=== PATIENT | male | born 1945 | race Caucasian/White ===

== ENCOUNTER 2017-07-15 06:23 | Day surgery (SDC) | payer MEDICARE ==
[2017-07-14 14:01] VITALS: BMI 24.7
[2017-07-15] MEDS ORDERED: CEFAZOLIN/Water 2 GM/20 ML SYRINGE ONE (06:33)
[2017-07-15 06:46] LABS: #Basophils 0.1 thou/uL (0.0-0.2); #Eosinphils 0.3 thou/uL (0.0-0.7); #Lymphocytes 2.5 thou/uL (1.20-3.40); #Monocytes 0.7 thou/uL (0.11-0.59); #Neutrophils 3.2 thou/uL (1.40-6.50); %Basophils 1.1 % (0.0-1.0); %Lymphocytes 36.9 % (21.0-51.0); %Monocytes 9.8 % (0.0-10.0); %Neutrophils 47.2 % (42.0-75.0); Mean Corpuscular Hemoglobin 34.2 pg (27.0-31.0); Mean Corpuscular Volume 97.7 fl (80.0-94.0); Mean Platelet Volume 8.7 fL (7.4-10.4); Platelet Count 155 thou/uL (130-400); RBC Distribution Width 11.9 % (11.5-14.5); Red Blood Cell (RBC) Count 4.09 mill/uL (4.70-6.10); White Blood Cell (WBC) Count 6.7 thou/uL (4.8-10.8)
[2017-07-15 06:52] LABS: PTT 25.9 SEC (22.9-36.1); Prothrombin Time 13.4 SEC (12.0-14.7)
[2017-07-15] MEDS ORDERED: Fentanyl 250 MCG/5 ML VIAL ONE (06:55)
[2017-07-15 07:05] LABS: Anion Gap 12 mmol/L (10-20); BUN (Urea Nitrogen) 14 mg/dL (8.4-25.7); Calc. Creatinine Clearance 63 mL/min (70-130); Calcium 9.9 mg/dL (7.8-10.44); Carbon Dioxide 25 mmol/L (23-31); Chloride 104 mmol/L (98-107); Estimated GFR-MDRD 76; Glucose 126 mg/dL (80-115); Potassium 4.6 mmol/L (3.5-5.1); Sodium 136 mmol/L (136-145)
[2017-07-15] MEDS ORDERED: Iothalamate Meglumine 60% 50 ML VIAL FS ONE (07:14)
--- NOTE | 2017-07-15 09:07 | OP ---
DATE OF PROCEDURE: 07/15/2017 PREOPERATIVE DIAGNOSIS: Bladder lesion, history of transitional cell carcinoma. POSTOPERATIVE DIAGNOSIS: Bladder lesion, history of transitional cell carcinoma. PROCEDURE PERFORMED: Cystoscopy, bilateral retrogrades, transurethral resection bladder tumor. SURGEON: Dr. Hector Morelos ANESTHETIC: General. ESTIMATED BLOOD LOSS: Minimal. FINDINGS: He had a 1 cm patch of papillary mucosa that was abnormal just medial to the left ureteral orifice and 1 just lateral to it. These were resected. Retrograde studies of both sides were joy l. After resection, the ureteral orifice was not resected and after resection it was effluxing clear urine. OPERATIVE TECHNIQUE: After obtaining written and verbal consent from the patient, he was taken to [facility] operating suite. He was placed in supine position on the treatment table. PlexiPulses placed on h is lower extremities and turned on. He was given a general anesthetic, oral intubation. He was plac ed in the dorsal lithotomy position, sterilely prepped and draped. A private branch exchange installer KUB was taken with fluoro scopy unit. Cystoscopy was performed. A 22-Swedish sheath was well lubricated and advanced under dir ect vision through the male urethra into the urinary bladder with aid of a 30-degree lens, a video ca ryanne and monitor. The bladder was filled and emptied a number of times and examined with both 30 and 70-degree lens. A 5 Swedish Pollack catheter was flushed with contrast and brought in. It was plac ed in the right ureteral orifice and contrast was injected slowly in a retrograde manner probably abo ut 10-20 mL filling out the distal, mid and proximal ureter as well as the entire collecting system. The left side was done in a similar manner and then drainage films were taken. The instruments were removed. We attempted then to pass with a visual obturator the 26-Swedish resectoscope sheath, but t here was a little bit tight to the distal urethra, so he was dilated up to 28 Swedish with Carol s ounds and the scope was then passed without difficulty into the bladder. We used a 30 degree lens an d video camera monitor, resected the tumor on the medial aspect and on the lateral aspect. These spe cimens were removed and cauterized the tumor sites and looked to be sure the ureter was still effluxi ng and it was. At this point, the instruments were removed and an 18-Swedish coude catheter was steri zuleima lubricated and passed without difficulty into the bladder, it was draining clear urine/irrigatio n fluid. He was taken out of dorsal lithotomy position, awakened, extubated, and taken by stretcher to the recovery room.
--- NOTE | 2017-07-15 10:18 | RAD ---
BILATERAL RETROGRADE PYELOGRAM: HISTORY: Bladder tumor. FINDINGS: There is opacification of the pelvicalyceal systems and ureters on either side without hydroureterone phrosis. Minimal persistent narrowing of the right distal ureter is again noted. IMPRESSION: Stable exam. POS: NATY
[2017-07-15] MEDS ORDERED: traMADol HCl 50 MG TAB ONE (10:52)
[2017-07-15] MEDS ORDERED: Glycopyrrolate 0.2 MG/ML 5 ML SYRINGE ONE (14:05)
[2017-07-15] MEDS ORDERED: PROPOFOL 200 MG/20 ML VIAL ONE (14:05)
[2017-07-15] MEDS ORDERED: Lidocaine 1% PF 5 ML VIAL ONE (14:05)
[2017-07-15] MEDS ORDERED: ePHEDrine/0.9% NaCl/PF SYRINGE 50 mg/10 ml ONE (14:05)
[2017-07-15] MEDS ORDERED: Ondansetron HCl/PF 4 MG/2 ML Vial ONE (14:05)
--- NOTE | 2017-07-19 18:08 | EKG ---
Test Reason : PREOP Blood Pressure : / mmHG Vent. Rate : 060 BPM Atrial Rate : 060 BPM P-R Int : 200 ms QRS Dur : 098 ms QT Int : 412 ms P-R-T Axes : 016 -03 037 degrees QTc Int : 412 ms Sinus rhythm with marked sinus arrhythmia Otherwise normal ECG When compared with ECG of 29-SEP-2015 08:34, No significant change was found Confirmed by Mely STAFFORD ([id number]) on 07/19/2017 6:08:10 PM Referred By: JAZMINE Confirmed By:Mely STAFFORD
== END 2017-07-15 11:05 | disposition home or self-care (01) ==
LOC: SDC 06:23
PROVIDERS: ATTEND Urology
PROC: 0TBB8ZX Excision of Bladder, Via Natural or Artificial Opening Endoscopic, Diagnostic (ICD-10-PCS; principal; 2017-07-15)
DX: N30.80 Other cystitis without hematuria (principal); I10 Essential (primary) hypertension; E11.9 Type 2 diabetes mellitus without complications; G89.29 Other chronic pain; M54.9 Dorsalgia, unspecified; Z85.51 Personal history of malignant neoplasm of bladder; Z79.84 Long term (current) use of oral hypoglycemic drugs; Z79.899 Other long term (current) drug therapy; Z88.5 Allergy status to narcotic agent
CPT/HCPCS: 52234; 74420; 80048; 85025; 85610; 85730; 88307; 93005; C1758; 36415; 93010; J2001; J2405; J2704; J3010; Q9961

== ENCOUNTER 2024-02-21 11:01 | Outpatient (CLI) | payer MEDICARE | END 2024-02-21 11:02 | disposition home or self-care (01) | LOC: SCSRAD 11:01 | PROVIDERS: ATTEND Nurse Practitioner Family | DX: M47.22 Other spondylosis with radiculopathy, cervical region (principal); I65.29 Occlusion and stenosis of unspecified carotid artery | CPT/HCPCS: 72040 ==

== ENCOUNTER 2024-03-08 09:22 | Inpatient (IN) | payer MEDICARE ==
[2024-03-08 10:10] LABS: #Basophils 0.03 10x3/uL (0.0-0.2); %Basophils 0.5 % (0.0-1.0); %Eosinophils 2.1 % (0.0-10.0); %Lymphocytes 18.6 % (21.0-51.0); %Monocytes 10.1 % (0.0-10.0); %Neutrophils 68.5 % (42.0-75.0); Hematocrit 28.6 % (42.0-52.0); Hemoglobin 9.3 g/dL (14.0-18.0); Mean Corpuscular HGB CONC 32.5 g/dL (32.0-36.0); Mean Corpuscular Hemoglobin 31.3 pg (27.0-31.0); Mean Corpuscular Volume 96.3 fL (78.0-98.0); Mean Platelet Volume 11.6 fL (7.4-10.4); Platelet Count 125 10x3/uL (130-400); RBC Distribution Width 13.2 % (11.5-14.5); Red Blood Cell (RBC) Count 2.97 mill/uL (4.70-6.10)
[2024-03-08] MEDS ORDERED: Furosemide 40 MG (4 mL) VIAL ONE (10:36)
[2024-03-08] MEDS ORDERED: hydrALAZINE 20 MG/ML VIAL ONE (10:36)
[2024-03-08 10:49] LABS: ALT (SGPT) 16 U/L (Less than 45); AST (SGOT) 28 U/L (11-34); Alkaline Phosphatase 114 U/L (40-110); Anion Gap 14 mmol/L (10-20); BUN (Urea Nitrogen) 15 mg/dL (8.4-25.7); Calc. Creatinine Clearance 0 mL/min (70-130); Calcium 9.2 mg/dL (7.8-10.44); Carbon Dioxide 24 mmol/L (23-31); Chloride 106 mmol/L (98-107); Estimated GFR 74; Globulin 3.5 g/dL (2.4-3.5); Glucose 113 mg/dL (83-110); Potassium 4.3 mmol/L (3.5-5.1); Protein, Total 7.5 g/dL (5.8-8.1); Sodium 140 mmol/L (136-145)
[2024-03-08 10:51] LABS: Troponin I Less than 0.010 ng/mL (< 0.028)
[2024-03-08] MEDS ORDERED: Lorazepam 1 MG TAB PO PRN (14:33)
[2024-03-08] MEDS ORDERED: Dextrose 5% in Water 1,000 ML IV PRN (14:33)
[2024-03-08] MEDS ORDERED: Glucagon 1 MG/ML KIT IM PRN (14:33)
[2024-03-08] MEDS ORDERED: Dextrose 50% Abboject 50 ML SYRINGE SLOW IVP PRN (14:33)
[2024-03-08] MEDS ORDERED: Insulin Lispro 100 UNIT/ML 10 ML VIAL SC PRN ×2 (14:33)
[2024-03-08] MEDS ORDERED: Ondansetron PF 4 MG/2 ML Vial IVP PRN (14:33)
[2024-03-08] MEDS ORDERED: Ondansetron ODT 4 MG TAB PO PRN (14:33)
[2024-03-08] MEDS ORDERED: Electrolyte Replacement Protocol 1 EACH FS SCH (14:45)
[2024-03-08 15:15] VITALS: BMI 33.3
[2024-03-08] MEDS ORDERED: Electrolyte Replacement Protocol FS PRN (15:30)
[2024-03-08 15:40] LABS: RBC Count-Automated (BF) 1403 /cu.mm; WBC/Nucleated-Auto (BF) 407 /cu.mm
[2024-03-08 15:41] LABS: BF Color Yellow; Body Fluid Source Ascites Body Fluid; Clarity Hazy (Clear); Tube # EDTA
[2024-03-08 16:01] LABS: BF Segmented Neutrophils 3 %; Cell Count Non Hematic 50 %; Lymphocytes 47 %
[2024-03-08] MEDS: Thiamine HCl 200 MG/2 ML VIAL SLOW IVP SCH (16:25)
[2024-03-08] MEDS: Pantoprazole 40 MG DR.TAB PO SCH (16:25)
[2024-03-08 16:41] LABS: Phosphorus 3.7 mg/dL (2.5-4.5)
[2024-03-08 16:43] LABS: Iron 27 ug/dL (65-175); Iron Binding Capacity, Total 464 mcg/dL (261-462); Magnesium 1.8 mg/dL (1.6-2.6)
[2024-03-08 17:01] LABS: HBsAg Index 0.31 S/CO (0-0.99); Hep A IgM AB NONREACTIVE (NonReactive); Hep B Core IgM Index 0.15 S/CO (0-0.79); Hep B Surf Ag NONREACTIVE S/CO (NonReactive); Hep C IgG Ab NONREACTIVE S/CO (NonReactive); Hep C Index 0.09 S/CO (0-0.79); Hepatitis B Core IgM Abs NONREACTIVE S/CO (NonReactive)
[2024-03-08 17:28] LABS: Ferritin 22.67 ng/mL (22-322)
[2024-03-08] MEDS: Magnesium 2 GM/50 ML(in water) 2 GM in Premix 1 BAG IVPB SCH (17:47)
[2024-03-08] MEDS: Melatonin 3 MG TAB PO PRN (22:08)
[2024-03-09 06:32] LABS: #Basophils 0.04 10x3/uL (0.0-0.2); %Basophils 0.8 % (0.0-1.0); %Eosinophils 2.9 % (0.0-10.0); %Lymphocytes 19.6 % (21.0-51.0); %Monocytes 12.3 % (0.0-10.0); %Neutrophils 64.2 % (42.0-75.0); Hematocrit 26.8 % (42.0-52.0); Hemoglobin 8.9 g/dL (14.0-18.0); Mean Corpuscular HGB CONC 33.2 g/dL (32.0-36.0); Mean Corpuscular Hemoglobin 31.2 pg (27.0-31.0); Mean Platelet Volume 11.8 fL (7.4-10.4); Platelet Count 122 10x3/uL (130-400); RBC Distribution Width 13.2 % (11.5-14.5); Red Blood Cell (RBC) Count 2.85 mill/uL (4.70-6.10)
[2024-03-09 08:35] LABS: ALT (SGPT) 13 U/L (Less than 45); AST (SGOT) 23 U/L (11-34); Albumin 3.4 g/dL (3.1-4.5); Anion Gap 12 mmol/L (10-20); BUN (Urea Nitrogen) 14 mg/dL (8.4-25.7); Bilirubin, Total 1.1 mg/dL (0.3-1.2); Calc. Creatinine Clearance 88 mL/min (70-130); Carbon Dioxide 26 mmol/L (23-31); Chloride 107 mmol/L (98-107); Estimated GFR 75; Globulin 2.9 g/dL (2.4-3.5); Glucose 115 mg/dL (83-110); Magnesium 2.1 mg/dL (1.6-2.6); Potassium 3.6 mmol/L (3.5-5.1); Protein, Total 6.3 g/dL (5.8-8.1); Sodium 141 mmol/L (136-145)
[2024-03-09 08:57] LABS: Alkaline Phosphatase 99 U/L (40-110)
[2024-03-09] MEDS: Furosemide 40 MG (4 mL) VIAL SLOW IVP SCH (09:34)
[2024-03-09] MEDS: Folic Acid 1 MG TAB PO SCH (09:34)
[2024-03-09] MEDS: Pantoprazole 40 MG DR.TAB PO SCH (09:34)
[2024-03-09] MEDS: Multivit, Therapeutic 1 TAB PO SCH (09:34)
[2024-03-09 10:50] LABS: INR-International Normal Ratio 1.1; Prothrombin Time 14.6 sec (12.0-14.7)
[2024-03-09 10:51] LABS: PTT 30.4 sec (22.9-36.1)
[2024-03-09] MEDS: Lisinopril 20 MG TAB PO SCH (10:51)
[2024-03-09] MEDS: Metoprolol Succinate XL 50 MG ER.TAB PO SCH (10:52)
[2024-03-09] MEDS: Pregabalin 75 MG CAP PO SCH ×2 (10:52→15:18)
[2024-03-09 12:58] LABS: EliA Vaculitis New Method **** NEW METHOD ****; Mitochondrial Ab 1.7 U/mL (<4 Negative)
[2024-03-09] MEDS ORDERED: Lorazepam 1 MG TAB PO PRN (14:33)
[2024-03-10] MEDS: Atorvastatin Calcium 20 MG TAB PO SCH (00:32)
[2024-03-10] MEDS: cefTRIAXone\\ROCEPHIN 1 GM in Sodium Chloride 0.9% 100 ML IVPB SCH (00:32)
[2024-03-10] MEDS: Vancomycin (BATCH) 2.5 GM in Premix 1 BAG IVPB SCH (01:55)
[2024-03-10 05:44] LABS: #Basophils 0.05 10x3/uL (0.0-0.2); %Lymphocytes 19.6 % (21.0-51.0); %Monocytes 11.9 % (0.0-10.0); %Neutrophils 63.3 % (42.0-75.0); Hematocrit 28.2 % (42.0-52.0); Hemoglobin 9.8 g/dL (14.0-18.0); Mean Corpuscular HGB CONC 34.8 g/dL (32.0-36.0); Mean Corpuscular Hemoglobin 33.1 pg (27.0-31.0); Mean Corpuscular Volume 95.3 fL (78.0-98.0); Mean Platelet Volume 11.7 fL (7.4-10.4); Platelet Count 146 10x3/uL (130-400); RBC Distribution Width 13.3 % (11.5-14.5); Red Blood Cell (RBC) Count 2.96 mill/uL (4.70-6.10)
[2024-03-10 06:04] LABS: Vancomycin, Random 34.2 ug/mL (See Comment)
[2024-03-10 06:16] LABS: ALT (SGPT) 18 U/L (Less than 45); AST (SGOT) 37 U/L (11-34); Albumin 3.4 g/dL (3.1-4.5); Alkaline Phosphatase 101 U/L (40-110); Anion Gap 11 mmol/L (10-20); BUN (Urea Nitrogen) 10 mg/dL (8.4-25.7); Bilirubin, Total 0.9 mg/dL (0.3-1.2); Calc. Creatinine Clearance 76 mL/min (70-130); Calcium 8.6 mg/dL (7.8-10.44); Carbon Dioxide 28 mmol/L (23-31); Chloride 105 mmol/L (98-107); Estimated GFR 67; Globulin 3.2 g/dL (2.4-3.5); Glucose 121 mg/dL (83-110); Magnesium 1.7 mg/dL (1.6-2.6); Potassium 3.2 mmol/L (3.5-5.1); Protein, Total 6.6 g/dL (5.8-8.1); Sodium 141 mmol/L (136-145)
[2024-03-10] MEDS ORDERED: Vancomycin 1 GM in Premix 1 BAG IVPB SCH (09:00)
[2024-03-10] MEDS: Metoprolol Succinate XL 50 MG ER.TAB PO SCH (09:12)
[2024-03-10] MEDS: Folic Acid 1 MG TAB PO SCH (09:12)
[2024-03-10] MEDS: Lisinopril 20 MG TAB PO SCH (09:13)
[2024-03-10] MEDS: Thiamine 100 MG TAB PO SCH (09:13)
[2024-03-10] MEDS: Potassium Chloride 20 MEQ TAB PO SCH ×2 (09:14→16:13)
[2024-03-10] MEDS: Magnesium 2 GM/50 ML(in water) 2 GM in Premix 1 BAG IVPB SCH (09:32)
[2024-03-10] MEDS ORDERED: Regadenoson 0.4 MG/5 ML SYRINGE ONE (11:18)
[2024-03-10] MEDS: Vancomycin HCl 750 MG in Sodium Chloride 0.9% 250 ML 250 ML IVPB SCH (13:14)
[2024-03-10 14:10] LABS: Potassium 3.4 mmol/L (3.5-5.1)
[2024-03-10] MEDS ORDERED: Lorazepam 1 MG TAB PO PRN (14:33)
[2024-03-11] MEDS ORDERED: Thiamine 100 MG TAB PO SCH (09:00)
[2024-03-11] MEDS: Spironolactone 100 MG TAB PO SCH (10:10)
[2024-03-11] MEDS: Furosemide 20 MG TAB PO SCH (10:11)
[2024-03-11] MEDS: Magnesium 2 GM/50 ML(in water) 2 GM in Premix 1 BAG IVPB SCH (12:23)
[2024-03-11] MEDS ORDERED: Lorazepam 0.5 MG TAB PO PRN (14:33)
[2024-03-11] MEDS: GoLYTELY 4,000 ml Bottle PO SCH (16:24)
[2024-03-11] MEDS: Sodium Chloride 0.9% 100 ML ONE (20:43)
[2024-03-12 09:20] VITALS: BP 157/77; TEMP 97.9
[2024-03-12] MEDS ORDERED: PROPOFOL 20 ML ONE ×2 (10:22→11:05)
[2024-03-12] MEDS ORDERED: PROPOFOL 200 MG/20 ML VIAL ONE (10:37)
[2024-03-12] MEDS ORDERED: Promethazine HCl 25 MG/ML VIAL IM PRN (11:13)
[2024-03-12] MEDS ORDERED: Ondansetron HCl/PF 4 MG/2 ML Vial IVP PRN (11:13)
[2024-03-12 14:17] LABS: #Basophils 0.06 10x3/uL (0.0-0.2); %Eosinophils 5.2 % (0.0-10.0); %Lymphocytes 24.7 % (21.0-51.0); %Monocytes 9.7 % (0.0-10.0); %Neutrophils 59.2 % (42.0-75.0); Hematocrit 36.6 % (42.0-52.0); Mean Corpuscular HGB CONC 32.8 g/dL (32.0-36.0); Mean Corpuscular Hemoglobin 30.5 pg (27.0-31.0); Mean Corpuscular Volume 92.9 fL (78.0-98.0); Mean Platelet Volume 11.7 fL (7.4-10.4); Platelet Count 177 10x3/uL (130-400); RBC Distribution Width 13.1 % (11.5-14.5); Red Blood Cell (RBC) Count 3.94 mill/uL (4.70-6.10)
[2024-03-12 14:34] LABS: Calc. Creatinine Clearance 82 mL/min (70-130); Estimated GFR 75
[2024-03-12 14:35] LABS: ALT (SGPT) 49 U/L (Less than 45); AST (SGOT) 77 U/L (11-34); Albumin 4.1 g/dL (3.1-4.5); Alkaline Phosphatase 136 U/L (40-110); Anion Gap 15 mmol/L (10-20); BUN (Urea Nitrogen) 10 mg/dL (8.4-25.7); Bilirubin, Total 0.8 mg/dL (0.3-1.2); Calc. Creatinine Clearance 79 mL/min (70-130); Calcium 9.4 mg/dL (7.8-10.44); Carbon Dioxide 22 mmol/L (23-31); Chloride 105 mmol/L (98-107); Estimated GFR 73; Glucose 133 mg/dL (83-110); Potassium 3.8 mmol/L (3.5-5.1); Protein, Total 8.1 g/dL (5.8-8.1); Sodium 138 mmol/L (136-145)
[2024-03-13 11:08] LABS: ANA Symphony (Qualitative) Negative (Negative); ANA Symphony (Quantitative) 0.2 Ratio (< 0.7 Negative); dsDNA IgG Antibody 1.3 IU/mL (<10 Negative)
== END 2024-03-12 15:21 | disposition home or self-care (01) | DRG 432 ==
LOC: ERS 09:22 → T4-B 15:09 → OBSVTOIN 03-09 13:19
PROVIDERS: ADMIT Student in an Organized Health Care Education/Training Program; ATTEND Internal Medicine
PROC: 0DBP8ZX Excision of Rectum, Via Natural or Artificial Opening Endoscopic, Diagnostic (ICD-10-PCS; principal; 2024-03-12)
PROC: 0DBL8ZX Excision of Transverse Colon, Via Natural or Artificial Opening Endoscopic, Diagnostic (ICD-10-PCS; 2024-03-12)
PROC: 0DBN8ZX Excision of Sigmoid Colon, Via Natural or Artificial Opening Endoscopic, Diagnostic (ICD-10-PCS; 2024-03-12)
PROC: 0DJ08ZZ Inspection of Upper Intestinal Tract, Via Natural or Artificial Opening Endoscopic (ICD-10-PCS; 2024-03-12)
PROC: 0W9G3ZZ Drainage of Peritoneal Cavity, Percutaneous Approach (ICD-10-PCS; 2024-03-12)
PROC: 30233J1 Transfusion of Nonautologous Serum Albumin into Peripheral Vein, Percutaneous Approach (ICD-10-PCS; 2024-03-12)
DX: K70.31 Alcoholic cirrhosis of liver with ascites (principal); I50.31 Acute diastolic (congestive) heart failure; K76.6 Portal hypertension; I11.0 Hypertensive heart disease with heart failure; K31.89 Other diseases of stomach and duodenum; K64.8 Other hemorrhoids; F10.10 Alcohol abuse, uncomplicated; F17.290 Nicotine dependence, other tobacco product, uncomplicated; I48.0 Paroxysmal atrial fibrillation; E11.9 Type 2 diabetes mellitus without complications; D50.9 Iron deficiency anemia, unspecified; Z98.890 Other specified postprocedural states; D75.839 Thrombocytosis, unspecified; Z79.899 Other long term (current) drug therapy; Z79.84 Long term (current) use of oral hypoglycemic drugs
CPT/HCPCS: 36415; 36416; 49083; 71045; 76705; 78452; 80053; 80074; 80202; 82042; 82103; 82105; 82150; 82565; 82728; 82945; 83516; 83540; 83550; 83735; 83880; 84100; 84157; 84484; 85025; 85060; 85610; 85730; 86015; 86038; 86225; 87070; 87077; 87205; 88112; 88305; 88341; 88342; 89051; 93005; 93017; 93306; 94760; 96374; 96375; 96376; A9502; G0378; J0360; J0696; J1940; J2704; J2785; J3370; J3411; J3475; J7050

== ENCOUNTER 2024-09-04 07:04 | Day surgery (SDC) | payer MEDICARE ==
[2024-08-28 11:16] VITALS: BMI 29.5
[2024-09-04] MEDS ORDERED: PROPOFOL 20 ML ONE (09:04)
[2024-09-04] MEDS ORDERED: CEFAZOLIN 2 GM VIAL ONE (09:34)
[2024-09-04] MEDS ORDERED: PHENYLEPHRINE-NS 100 MCG/ML 10 ML SYRINGE ONE (10:07)
[2024-09-04] MEDS ORDERED: Ondansetron PF 4 MG/2 ML Vial ONE (10:50)
[2024-09-04] MEDS ORDERED: hydrALAZINE 20 MG/ML VIAL ONE (11:32)
[2024-09-04] MEDS ORDERED: Acetaminophen 325 MG TAB ONE (12:46)
== END 2024-09-04 14:25 | disposition home or self-care (01) ==
LOC: SDC 07:04
PROVIDERS: ATTEND Urology
PROC: BT14ZZZ Fluoroscopy of Kidneys, Ureters and Bladder (ICD-10-PCS; principal; 2024-09-04)
PROC: 0TB48ZX Excision of Left Kidney Pelvis, Via Natural or Artificial Opening Endoscopic, Diagnostic (ICD-10-PCS; principal; 2024-09-04)
DX: N30.30 Trigonitis without hematuria (principal); N30.20 Other chronic cystitis without hematuria; I12.9 Hypertensive chronic kidney disease with stage 1 through stage 4 chronic kidney disease, or unspecified chronic kidney disease; E11.22 Type 2 diabetes mellitus with diabetic chronic kidney disease; N18.9 Chronic kidney disease, unspecified; Z90.49 Acquired absence of other specified parts of digestive tract; Z88.5 Allergy status to narcotic agent
CPT/HCPCS: 52005; 52204; 74420; J0360; J1100; J2405; J2704; J3010; Q9967; 88305; 88342